=== PATIENT | female | born 1985 | race Caucasian/White ===

== ENCOUNTER 2017-08-11 13:13 | Emergency (ER) | payer MEDICAID ==
[~2017-08-11] VITALS: Ht 160 cm; Wt 60.6 kg
[~2017-08-11 13:13] MED LIST: FERR27TA; PNV1TABL12
[2017-08-11 13:15] VITALS: Ht 160 cm; Wt 60.6 kg
[2017-08-11 14:15] LABS: BASOPHILS % 0.1 % (0.0-2.0); EOSINOPHILS # 0.1 10^3/ul (0.0-0.5); EOSINOPHILS % 1.3 % (0.0-7.0); HEMATOCRIT 35.9 % (37.0-47.0); HEMOGLOBIN 12.6 g/dl (12.0-16.0); LYMPHOCYTES # 1.1 10^3/ul (0.8-2.9); LYMPHOCYTES % 15.4 % (15.0-51.0); MEAN CORPUSCULAR HEMOGLOBIN 29.7 pg (29.0-33.0); MEAN CORPUSCULAR HGB CONC 35.1 g/dl (32.0-37.0); MEAN CORPUSCULAR VOLUME 84.7 fl (82.0-101.0); MEAN PLATELET VOLUME 9.1 fl (7.4-10.4); MONOCYTE # 0.5 10^3/ul (0.3-0.9); MONOCYTES % 7.8 % (0.0-11.0); NEUTROPHIL # 5.1 10^3/ul (1.6-7.5); PLATELET COUNT 195 10^3/UL (140-415); RED BLOOD COUNT 4.24 10^6/ul (4.20-5.40); RED CELL DISTRIBUTION WIDTH 12.1 % (11.5-14.5); WHITE BLOOD COUNT 6.8 10^3/ul (4.8-10.8)
[2017-08-11 14:20] LABS: ADD UMIC YES; UR ASCORBIC ACID NEGATIVE (NEGATIVE); UR BACTERIA FEW /HPF (NONE SEEN); UR BILIRUBIN (Dip) NEGATIVE (NEGATIVE); UR BLOOD (Dip) 1+ mg/dL (NEGATIVE); UR CLARITY CLEAR (CLEAR); UR COLOR STRAW (YELLOW); UR GLUCOSE (Dip) NEGATIVE (NEGATIVE); UR KETONES (Dip) NEGATIVE (NEGATIVE); UR LEUKOCYTE ESTERASE (Dip) NEGATIVE Leu/ul (NEGATIVE); UR NITRITE (Dip) NEGATIVE (NEGATIVE); UR RBC 1 /HPF (0-5); UR SPECIFIC GRAVITY (Dip) 1.008 (1.003-1.030); UR SQUAMOUS EPITHELIAL CELL FEW /HPF (FEW); UR TOTAL PROTEIN (Dip) NEGATIVE (NEGATIVE); UR UROBILINOGEN (Dip) NEGATIVE (NEGATIVE)
--- NOTE | 2017-08-11 15:44 | RADRPT ---
PROCEDURE: US OB. CLINICAL INDICATION: Vaginal bleeding. TECHNIQUE: Multiple sonographic images of the pelvis were obtained utilizing a transabdominally te chnique. The images were reviewed on a PACS workstation. COMPARISON: None FINDINGS: The uterus is visualized. The endometrial echo is thickened and there is an intrauterine gestational sac. A yolk sac and pole is noted and crown-rump length, measures 3.2 cm . This corresponds t o a mean gestational age of 10 weeks and 0 days. cardiac activity measures 168 bpm. The right ovary measures 3.1 x 1.6 x 2.3 cm cm. The left ovary measures 3.2 x 2.0 x 2.3 cm cm. There is a 1.8 cm left ovarian cyst. There is no significant free fluid. IMPRESSION: 1. Single live intrauterine corresponding to a mean gestational age of 10 weeks and 0 days . cardiac activity measures 168 bpm. Estimated due date is March 09, 2018. 2. 1.8 cm left ovarian cyst. No gross adnexal masses. No significant free fluid. RPTAT: AAPP Physician Latoya Date Time Electronically viewed and signed by Physician Latoya on 08/11/2017 15:43 TERRENCE/
--- NOTE | 2017-08-11 15:52 | ERD ---
ER Documentation Chief Complaint Chief Complaint small amt vaginal bleeding preg, back pain, lmp unk, sent from clinic HPI This 32-year-old female presents with a vaginal bleeding which has been intermittent for last 3 days. She has positive some mild cramping but not sustained or significant. She denies fevers or vomiting. Denies dysuria. She denies any passage of tissue. She may have had small clots. SHE is a G6 para 4 ROS All systems reviewed and are negative except as per history of present illness. Medications Home Meds Reported Medications Ferrous Sulfate (Iron) 1 Tab Tablet 11/21/10 Pnv Cmb#21/Iron/Folic Acid ( Complete Caplet) 1 Tab Tablet 11/21/10 Allergies Allergies: Coded Allergies: No Known Allergy (Verified Allergy, Mild, 11/21/10) PMhx/Soc Medical and Surgical Hx: pt denies Medical Hx, pt denies Surgical Hx Hx Alcohol Use: No Hx Substance Use: No Hx Tobacco Use: No Smoking Status: Never smoker Physical Exam Vitals Vital Signs Date Time Temp Pulse Resp B/P Pulse Ox O2 Delivery O2 Flow Rate FiO2 08/11/17 13:15 98.3 82 18 123/61 99 Physical Exam Const: [] Head: Atraumatic Eyes: Normal Conjunctiva ENT: Normal External Ears, Nose and Mouth. Neck: Full range of motion..~ No meningismus. Resp: Clear to auscultation bilaterally Cardio: Regular rate and rhythm, no murmurs Abd: Soft, non tender, non distended. Normal bowel sounds Skin: No petechiae or rashes Back: No midline or flank tenderness Ext: No cyanosis, or edema Neur: Awake and alert Psych: Normal Mood and Affect Result Diagram: 08/11/17 1400 Results 24 hrs Laboratory Tests Test 08/11/17 13:50 08/11/17 14:00 Urine Color STRAW Urine Clarity CLEAR Urine pH 7.0 Urine Specific [place] 1.008 Urine Ketones NEGATIVEmg/dL Urine Nitrite NEGATIVEmg/dL Urine Bilirubin NEGATIVEmg/dL Urine Urobilinogen NEGATIVEmg/dL Urine Leukocyte Esterase NEGATIVELeu/ul Urine Microscopic RBC 1/HPF Urine Microscopic WBC 0/HPF Urine Squamous Epithelial Cells FEW/HPF Urine Bacteria FEW/HPF Urine Hemoglobin 1+mg/dL Urine Glucose NEGATIVEmg/dL Urine Total Protein NEGATIVEmg/dl White Blood Count 6.810^3/ul Red Blood Count 4.2410^6/ul Hemoglobin 12.6g/dl Hematocrit 35.9% Mean Corpuscular Volume 84.7fl Mean Corpuscular Hemoglobin 29.7pg Mean Corpuscular Hemoglobin Concent 35.1g/dl Red Cell Distribution Width 12.1% Platelet Count 26424^3/UL Mean Platelet Volume 9.1fl Neutrophils % 75.0% Lymphocytes % 15.4% Monocytes % 7.8% Eosinophils % 1.3% Basophils % 0.1% Nucleated Red Blood Cells % 0.0/100WBC Neutrophils # 5.110^3/ul Lymphocytes # 1.110^3/ul Monocytes # 0.510^3/ul Eosinophils # 0.110^3/ul Basophils # 0.010^3/ul Nucleated Red Blood Cells # 0.010^3/ul Beta HCG, Quantitative 387828.0mIU/ml Procedures/MDM Quantitative hCG is over 200,000. Patient is Rh+. Ultrasound shows 10 week intrauterine with positive heart tones with no acute abnormalities. Patient was stable amatory throughout the ED course. Patient presents with vaginal spotting or bleeding intermittently for the last 3 days with findings to suggest miscarriage, ectopic , and there is no signs of appendicitis or acute abdomen. She will be discharged home with further observation and return precautions and OB follow-up. The patient was stable with no new complaints during the ER course. Clinically, there is no current evidence to suggest meningitis, sepsis, acute abdomen, pneumonia, acute coronary syndrome, pulmonary embolism, or any other emergent condition appearing to require further evaluation or hospitalization. The patient should certainly return for any new or worsening symptoms per the aftercare instructions. They should otherwise follow-up with her primary care doctor for reevaluation this week. Departure Diagnosis: Primary Impression: Vaginal bleeding in patient at less than 20 weeks ges... Condition: Stable Patient Instructions: Bleeding During Early Additional Instructions: Examines normal hoy. Cheque otro vez con vega doctor primario en el proximo chao or regresa para mas o nueva simptomas. HARVEY MUSE MD Aug 11, 2017 15:52
[2017-08-11 15:58] VITALS: BP 117/65; PULSE 75; RESP 19; TEMP 98.2
== END 2017-08-11 16:00 | disposition home or self-care (01) ==
LOC: FTE 13:13
DX: O20.9 Hemorrhage in early pregnancy, unspecified (principal); R10.2 Pelvic and perineal pain; Z3A.10 10 weeks gestation of pregnancy
CPT/HCPCS: 36415; 76801; 81001; 84702; 85025; 86900; 86901; Z7502

== ENCOUNTER 2018-02-02 13:38 | Outpatient (CLI) | END 2018-02-02 21:17 | disposition home or self-care (01) ==

== ENCOUNTER 2018-02-20 20:42 | Inpatient (IN) | END 2018-02-22 17:25 | disposition home or self-care (01) | DRG 766 ==

== ENCOUNTER 2018-12-03 15:56 | Emergency (ER) | payer MEDICAID ==
[~2018-12-03] VITALS: Ht 152.4 cm; Wt 65.0 kg
[2018-12-03 16:00] VITALS: BP 119/66; PULSE 107; RESP 16; Ht 152.4 cm; Wt 65.0 kg
[2018-12-03] MEDS ORDERED: D-ME118S24 PO (19:58)
--- NOTE | 2018-12-03 20:03 | ERD ---
ER Documentation Chief Complaint Chief Complaint fevER SINCE YESTERDAY HPI 33-year-old female presents for fever, cough, headache, sore throat times 2 days. She states that the cough is dry. Also notes that the cough is mild. The fever is noted to be 101 at home. She is been taking Motrin and Tylenol with some relief however the fever returned. She feels that her tonsils are swollen. No significant past medical history otherwise. ROS All systems reviewed and are negative except as per history of present illness. Medications Home Meds Active Scripts D-Methorphan Hb/P-Epd HCl/Bpm (Xttlkpnhxj-Fvuwalyqozp-Cb Syr) 118 Ml Syrup, 5 ML PO Q4H PRN for COUGH, #1 BOTTLE Prov:MILO TRAN DO 12/03/18 Reported Medications Ferrous Sulfate (Iron) 1 Tab Tablet 11/21/10 Pnv Cmb#21/Iron/Folic Acid ( Complete Caplet) 1 Tab Tablet 11/21/10 Allergies Allergies: Coded Allergies: No Known Allergy (Verified , 02/20/18) PMhx/Soc Medical and Surgical Hx: pt denies Medical Hx, pt denies Surgical Hx Hx Alcohol Use: No Hx Substance Use: No Hx Tobacco Use: No Smoking Status: Never smoker Physical Exam Vitals Vital Signs Date Temp Pulse Resp B/P (MAP) Pulse Ox O2 O2 Flow FiO2 Time Delivery Rate 12/03/18 99.0 107 16 119/66 99 16:00 (83) Physical Exam Const: No acute distress Head: Atraumatic Eyes: Normal Conjunctiva ENT: Normal External Ears, bilateral tympanic membrane intact without erythema or bulging noted, nose and Mouth examination normal, there is bilateral tonsillar swelling noted, no exudate Neck: Full range of motion. No meningismus. Resp: Clear to auscultation bilaterally, no wheezing, rales, rhonchi Cardio: Regular rate and rhythm, no murmurs Skin: No petechiae or rashes Ext: No cyanosis, or edema Neur: Awake and alert Psych: Normal Mood and Affect Procedures/MDM Medical Decision Making: Differential diagnosis includes but not limited to upper respiratory infection, pneumonia, sepsis, meningitis. Patient appeared well on physical examination, nontoxic appearing. Lungs were clear to auscultation bilaterally. There is low suspicion for pneumonia, sepsis, meningitis. Patient likely has an upper respiratory infection, likely viral. Therefore antibiotics not indicated. Discussed symptomatic treatment with patient who agrees with plan. Patient given prescription for supportive medications. Patient advised to follow up with PCP in 1-2 days. Patient advised to return to ED for new or worsening symptoms. Patient stable on discharge from the ED. Disclaimer: Inadvertent spelling and grammatical errors are likely due to EHR/dictation software use and do not reflect on the overall quality of patient care. Also, please note that the electronic time recorded on this note does not necessarily reflect the actual time of the patient encounter. Departure Diagnosis: Primary Impression: URI (upper respiratory infection) URI type: unspecified URI Qualified Codes: J06.9 - Acute upper respiratory infection, unspecified Condition: Fair Patient Instructions: Preventing Common Respiratory Infections Referrals: [facility] YOU HAVE RECEIVED A MEDICAL SCREENING EXAM AND THE RESULTS INDICATE THAT YOU DO NOT HAVE A CONDITION THAT REQUIRES URGENT TREATMENT IN THE EMERGENCY DEPARTMENT. FURTHER EVALUATION AND TREATMENT OF YOUR CONDITION CAN WAIT UNTIL YOU ARE SEEN IN YOUR DOCTORS OFFICE WITHIN THE NEXT 1-2 DAYS. IT IS YOUR RESPONSIBILITY TO MAKE AN APPOINTMENT FOR FOLOW-UP CARE. IF YOU HAVE A PRIMARY DOCTOR --you should call your primary doctor and schedule an appointment IF YOU DO NOT HAVE A PRIMARY DOCTOR YOU CAN CALL OUR PHYSICIAN REFERRAL HOTLINE AT IF YOU CAN NOT AFFORD TO SEE A PHYSICIAN YOU CAN CHOSE FROM THE FOLLOWING [facility] [address] [facility]. [facility] [address] [facility] [facility] [address] [facility]. [facility] [address] [facility]. [facility] [address] [facility]. [facility]. [address] Additional Instructions: Llame al doctor MAANA y pascale abimbola QUINN PARA DENTRO DE 1-2 RAE.Dgale a la secretaria que nosotros le instruimos hacer esta quinn.Avise o llame si vega condic in se empeora antes de la qunin. Regresa aqui si peor o no mejor. MILO TRAN DO Dec 03, 2018 20:03
== END 2018-12-03 20:25 | disposition home or self-care (01) ==
LOC: FTE 15:56
DX: J06.9 Acute upper respiratory infection, unspecified (principal)
CPT/HCPCS: 87880; Z7502; 99283